=== PATIENT | female | born 1950 | race Caucasian/White ===

== ENCOUNTER 2022-02-28 06:44 | Day surgery (SDC) | payer MEDICARE, BC ==
[~2022-02-28 06:44] MED LIST: Lactated Ringers 1,000 ML IV SCH; Sodium Chloride 0.9% 10 ML Syringe FLUSH PRN; Sodium Chloride 0.9% 2.5 ML Syringe FLUSH PRN; Sodium Chloride 0.9% 20 ML SDV IV PRN
[2022-02-28] MEDS ORDERED: Lidocaine 2% 5 ML SDV ONE (07:06)
[2022-02-28] MEDS ORDERED: Propofol 200 MG/20 ML SDV ONE (07:06)
[2022-02-28] MEDS ORDERED: fentaNYL 100 MCG/2 ML SDV ONE (07:07)
[2022-02-28 08:51] VITALS: BP 158/62; PULSE 80
== END 2022-02-28 08:49 | disposition home or self-care (01) ==
LOC: MW.SDS 06:44
PROVIDERS: ATTEND Surgery
DX: R19.5 Other fecal abnormalities (principal); C50.919 Malignant neoplasm of unspecified site of unspecified female breast; E66.9 Obesity, unspecified; M85.80 Other specified disorders of bone density and structure, unspecified site; Z88.2 Allergy status to sulfonamides; Z98.890 Other specified postprocedural states; Z68.33 Body mass index [BMI] 33.0-33.9, adult
CPT/HCPCS: 45378; J2704; J3010; J7120; 00811; 99100